=== PATIENT | female | born 1995 | race Caucasian/White ===

== ENCOUNTER 2018-01-30 22:34 | Emergency (ER) | payer SELFPAY ==
[~2018-01-30] VITALS: Ht 170.2 cm; Wt 65.8 kg
[~2018-01-30 22:34] MED LIST: CEPHALEXIN500 MG ORAL; IBUPROFEN600 MG ORAL
[2018-01-30 22:47] VITALS: BP 129/91
[2018-01-30] MEDS ORDERED: Hydrogen Peroxide 473ml Bottle TOPIC ONE (23:30)
[2018-01-30] MEDS ORDERED: Bacitracin Oint UD TOPIC ONE (23:30)
[2018-01-30] MEDS ORDERED: BACTRIM DS TAB1 EAC1 ORAL (23:53)
[2018-01-30] MEDS ORDERED: MUPIROCIN22 GM TOPIC (23:53)
--- NOTE | 2018-01-30 23:53 | Emergency Room Report ---
History of Present Illness General Chief Complaint: Wound Recheck/Suture Removal Source: Patient, Medical Record Present Illness HPI Is a 22-year-old female whom I saw last night for foot laceration. She was intoxicated. She came in today for wound check. She was concerned because she was drunk last night and doesn't remember much. She has some pain to the foot. She's been using crutches. She denies any other injury. Has not looked at the wound itself. And taking her antibiotics. Allergies: Coded Allergies: No Known Allergies (Unverified , 01/29/18) Patient History Past Medical History: see triage record, old chart reviewed Past Surgical History: none Pertinent Family History: none Social History: Reports: alcohol use Last Menstrual Period: 01/23/18 Now: No Immunizations: UTD Reviewed Nursing Documentation: PMH: Agreed; PSxH: Agreed Nursing Documentation-PMH Hx Diabetes: Yes Hx Gastrointestinal Problems: Yes - gastritis History Of Psychiatric Problem: Yes - anxiety Review of Systems Eye: Denies: eye pain, blurred vision ENT: Denies: ear pain, nose congestion, throat swelling Respiratory: Denies: cough, shortness of breath Cardiovascular: Denies: chest pain, palpitations Gastrointestinal: Denies: abdominal pain, diarrhea, nausea, vomiting Musculoskeletal: Denies: back pain, joint pain Skin: Denies: rash Neurological: Denies: headache, numbness Endocrine: Denies: increased thirst, increased urine Hematologic/Lymphatic: Denies: easy bruising All Other Systems: negative except mentioned in HPI Physical Exam Vital Signs Date Time Temp Pulse Resp B/P (MAP) Pulse Ox O2 Delivery O2 Flow Rate FiO2 01/30/18 22:46 98.2 82 16 129/91 98 Room Air 98.2 vitals normal Sp02 EP Interpretation: reviewed, normal General Appearance: well appearing, no apparent distress, alert Head: normocephalic, atraumatic Eyes: bilateral eye PERRL, bilateral eye EOMI ENT: hearing grossly normal, normal pharynx Neck: full range of motion, supple, no meningismus Respiratory: chest non-tender, lungs clear, normal breath sounds Cardiovascular #1: regular rate, rhythm, no murmur Gastrointestinal: normal bowel sounds, non tender, no mass, no organomegaly, no bruit, non-distended Musculoskeletal: back normal, gait/station normal, normal range of motion, other - Right foot: There is some mild erythema. Mild edema. Wound looks clean. No crepitance. Neurologic: alert, oriented x3 Psychiatric: mood/affect normal Skin: warm/dry Medical Decision Making Diagnostic Impression: Primary Impression: Encounter for wound re-check ER Course Patient with wound check. No obvious infection. We will prescribe antibiotic ointment. No evidence of necrotizing fasciitis for foreign body. Last Vital Signs Date Time Temp Pulse Resp B/P (MAP) Pulse Ox O2 Delivery O2 Flow Rate FiO2 01/30/18 22:47 98.2 81 16 129/91 98 Room Air 98.2 Status: improved Disposition: HOME, SELF-CARE Condition: Stable Scripts Mupirocin* (MUPIROCIN*) 22 Gm Oint...g. 1 APPLIC TOPIC THREE TIMES A DAY, #22 GM Prov: ADA WELDON M.D. 01/30/18 Trimethoprim/Sulfamethoxazole 160/800* (BACTRIM DS TABLET*) 1 Each Tablet 1 TAB ORAL Q12H, #14 TAB 0 Refills Prov: ADA WELDON M.D. 01/30/18 Referrals: NOT CHOSEN NEGRITA/,REFERRING (PCP) Patient Instructions: Wound Check Additional Instructions: Continue with both antibiotics. Use antibiotic ointment twice a day. Follow- up for recheck in 2-3 days. Suture out in 10-14 days. Return if worse. ADA WELDON M.D. Jan 30, 2018 23:53
[2018-01-30 23:58] VITALS: BP 129/91
== END 2018-01-30 23:58 | disposition home or self-care (01) ==
LOC: EMR 23:12
DX: Z48.817 Encounter for surgical aftercare following surgery on the skin and subcutaneous tissue (principal)
CPT/HCPCS: 99282